=== PATIENT | female | born 1965 | race Caucasian/White ===

== ENCOUNTER → 2017-01-10 | Day surgery (SDC) | payer OTHER, MEDICARE ==
[~2017-01-10] VITALS: Ht 167.6 cm; Wt 67.1 kg
--- NOTE | 2017-01-10 17:41 | Operative Report ---
Operative/Inv Procedure Report Surgery Date: 01/10/17 Name of Procedure: interstim stage 1 and 2 Pre-Operative Diagnosis: frequency, urge incontinence Post-Operative Diagnosis: same Estimated Blood Loss: less than 50ml Surgeon/Call Center Assistant: JORGE SILVEIRA MD Anesthesia: moderate sedation Implants: interstim lead and battery Complications: none Condition: stable Operative Indication: frequency and urge incontinence Operative/Procedure Note Note: This an operative dictation on patient Juany Desir. She was identified in the holding area and consented for InterStim stage I and 2. She was given the risks benefits and alternatives of the procedure and she wished to proceed. All questions were answered. She understood that it was the same procedure that was done in the office with the addition of the battery pack and everything would be internal. Patient was taken to the operating room placed on the operating table in the supine position. Timeout was performed. IV 2 G Was Given She Was Prepped and Draped in the Standard Sterile Fashion with ChloraPrep. An Ioban the was placed prior to the sterile drapes. The patient was marked out in the previous insertion sites of the wire was easily identified. Fluoroscopy was used throughout the case to identify placement of the needle the guidewires well as the lead. The case was started on the patient's left and was eventually placed in the patient's right side. She had optimal sensation in the rectal/vaginal area with great toe flexion as well as laura that were noted on the right side on all 4 leads. When the lead was seen to be in a good position in the S3 foramen both AP and lateral views it was the placed using a guidewire and the dilator. The third and fourth lead was seen to be straddling the proximal portion of the sacrum. It was tunneled through the skin to the pocket that was created for the battery. The battery was connected to the lead and tightened with the hex wrench. The battery was placed into the pocket and the battery was tested for impedance. It was functioning well. The incision was closed with interrupted 3-0 Vicryl sutures followed by 4-0 running Monocryl subcuticular suture. The puncture sites were closed using Dermabond glue. Steri-Strips were applied followed by OpSite and gauze. Sponge and needle count were correct at the end of the case. The patient tolerated the procedure well. Findings: excellent response from senstion standpoint from the patient as well as greeat toe flexion and laura. Discharge Disposition: Same Day Admissions
--- NOTE | 2017-01-12 13:29 | RADIOLOGY REPORT ---
EXAMINATION: C-arm fluoroscopy assistance CLINICAL INFORMATION: 51-year-old female for InterStim therapy. COMPARISON: None Technique and findings: 38 spot radiographs were obtained at the time of the procedure. At the end of the procedure, there is a radiopaque electrode device identified projecting over the lateral half of the sacrum. The electrode appearing intact. Fluoroscopy time: 41 seconds. Full procedural detail will be dictated by Dr. Martin. IMPRESSION: C-arm fluoroscopy assistance and multiple spot radiographs were obtained at the time of the procedure. Full procedural detail will be dictated by Dr. Martin.
== END ==
LOC: STS 01:53
DX: N39.41 Urge incontinence (principal); R35.0 Frequency of micturition; I10 Essential (primary) hypertension; G40.909 Epilepsy, unspecified, not intractable, without status epilepticus; Z87.891 Personal history of nicotine dependence
CPT/HCPCS: 72100; C1767; C1778; C1894; J0690; J2250